=== PATIENT | female | born 1970 | race African-American/Black ===

== ENCOUNTER 2019-11-06 06:12 | Day surgery (SDC) | payer BC, OTHER ==
[2019-11-04 17:39] VITALS: BMI 33.2
[2019-11-06] MEDS ORDERED: PROPOFOL 20 ML ONE ×2 (07:46)
[2019-11-06] MEDS ORDERED: MIDAZOLAM HCL 2 MG/2 ML SINGLE DOSE VIAL ONE (07:46)
[2019-11-06] MEDS ORDERED: ROCURONIUM BROMIDE 100 MG/10 ML VIAL ONE (07:46)
[2019-11-06] MEDS ORDERED: SUCCINYLCHOLINE CHLORIDE 200 MG/10 ML SYRINGE ONE (07:46)
[2019-11-06] MEDS ORDERED: LIDOCAINE HCL 2% JELLY (5 ML/TUBE) ONE (07:47)
[2019-11-06] MEDS ORDERED: LIDOCAINE HCL/PF 2% SDV 5ML VIAL ONE (07:47)
[2019-11-06] MEDS ORDERED: DEXAMETHASONE SOD PHOSPHATE 4 MG/1 ML VIAL ONE (07:47)
[2019-11-06] MEDS ORDERED: KETOROLAC TROMETHAMINE 30 MG/1 ML VIAL ONE (07:47)
[2019-11-06 08:40] LABS: HEMATOCRIT 36.5 % (32.4-45.2); HEMOGLOBIN 11.9 GM/dL (10.7-15.3); MCH 27.9 pg (25.7-33.7); MCHC 32.8 g/dl (32.0-36.0); MEAN CELL VOLUME 85.2 fl (80-96); MEAN PLT VOLUME 8.9 fl (7.5-11.1); PLATELET COUNT 256 K/MM3 (134-434); RBC 4.28 M/mm3 (3.60-5.2); WHITE BLOOD COUNT 6.1 K/mm3 (4.0-10.0)
[2019-11-06] MEDS ORDERED: ePHEDrine SULFATE 50 MG/1 ML AMPULE ONE (09:03)
[2019-11-06] MEDS ORDERED: ceFAZolin 2 GRAM PREMIX BAG IVPB ONE (09:07)
[2019-11-06] MEDS ORDERED: ceFAZolin SODIUM 1 GM VIAL ONE (09:08)
[2019-11-06] MEDS ORDERED: SODIUM CHLORIDE 0.9% P/F 10 ML VIAL IJ ONE (09:08)
--- NOTE | 2019-11-06 10:57 | OP ---
Operative Note - Note: Operative Date: 11/06/19 Pre-Operative Diagnosis: Postmenopausal bleeding, postcoital bleeding, fibroid uterus. Operation: Hysteroscopy, myomectomy, D&C Findings: Small, irregularly shaped endometrial cavity with submucous myoma(s). Post-Operative Diagnosis: Same as Pre-op Surgeon: Marv Goldsmith Anesthesiologist/CARE PROVIDER: Melany Nino Anesthesia: General Specimens Removed: Submucous myoma, endometrial curettings. Estimated Blood Loss (mls): 5 Blood Volume Replaced (mls): 0 Fluid Volume Replaced (mls): 600 Operative Report Dictated: Yes
[2019-11-06] MEDS ORDERED: oxyCODONE HCL 5 MG TABLET PO PRN (11:26)
[2019-11-06] MEDS ORDERED: ONDANSETRON 4 MG/2 ML VIAL IVPUSH PRN (11:26)
[2019-11-06] MEDS ORDERED: LACTATED RINGERS SOLUTION 1,000 ML IV SCH (11:30)
[2019-11-06] MEDS ORDERED: oxyCODONE HCL 5 MG TABLET ONE (14:33)
[2019-11-06 14:58] VITALS: BP 127/81; PULSE 81; TEMP 98.1
--- NOTE | 2019-11-10 17:05 | PATH ---
Surgical Pathology Report Patient Name: RADHA GIBSON [facility]. Rec. #: [id number] /Age/Gender: 1970 (Age: 49) / F Account: [id number] Location: [facility] SURGICAL Taken: 11/06/2019 Received: 11/06/2019 Reported: 11/10/2019 Physicians: Marv Goldsmith M.D. Specimen(s) Received A: ENDOCERVICAL CURETTINGS B: MYOMA Clinical History Postmenopausal bleeding, fibroid uterus, postcoital bleeding Final Diagnosis A. ENDOMETRIAL CURETTINGS: ENDOMETRIAL POLYP. SEPARATE PROLIFERATIVE ENDOMETRIUM. ENDOCERVICAL TISSUE WITH SQUAMOUS METAPLASIA. B. MYOMA, RESECTION: ENDOMETRIAL POLYP. SEPARATE SMOOTH MUSCLE BUNDLES, CONSISTENT WITH SUBMUCOSAL LEIOMYOMA. SEPARATE PROLIFERATIVE ENDOMETRIUM. Electronically Signed Willy Grullon M.D. Gross Description A. Received in formalin labeled "endometrial curettings," is a 1.7 x 1.5 x 0.3 cm aggregate of swanson soft tissue fragments. The formalin is filtered and the specimen is entirely submitted in one cassette. B. Received in formalin labeled "myoma," is a 1 g, 2.5 x 1.7 x 0.3 cm aggregate of swanson soft tissue fragments admixed with blood clot. The formalin is filtered and the specimen is entirely submitted in one cassette. /11/09/2019 [facility]11/09/2019
--- NOTE | 2019-11-26 11:58 | OP ---
DATE OF OPERATION: 11/06/2019 PREOPERATIVE DIAGNOSIS: Postmenopausal bleeding, postcoital bleeding, fibroid uterus, endometriosis. POSTOPERATIVE DIAGNOSIS: Postmenopausal bleeding, postcoital bleeding, fibroid uterus, endometriosis. PROCEDURE: Hysteroscopic myomectomy and dilation and curettage. SURGEON: Marv Goldsmith MD ANESTHESIOLOGIST: Melany Nino MD ANESTHESIA: General. COMPLICATIONS: None. ESTIMATED BLOOD LOSS: 5 mL. INTRAVENOUS FLUIDS: 600 mL. PATHOLOGY: Submucous myoma fragments and endometrial curettings. FINDINGS: Examination under anesthesia revealed an enlarged, bulky uterus. The examination was limited by patient's body habitus. Hysteroscopy revealed a small, irregularly shaped endometrial cavity with submucous myomas. PROCEDURE DICTATION: The patient was met preoperatively. Risks, benefits, and alternatives of surgery were discussed in detail. All questions were answered. The consent form was reviewed and discussed. The patient verbalized her understanding and requested to proceed with surgery. The patient was brought to the OR with the IV running. She was placed on the surgical table in the supine position. General anesthesia was achieved without difficulty. The patient was then placed in a dorsal lithotomy position using adjustable Newton stirrups. She was examined under anesthesia, with the findings as described above. The timeout was then conducted as per standard protocol. The patient was prepped and draped in the usual sterile fashion. A weighted speculum was introduced inside the vagina with good visualization of the cervix. The cervix was grasped with a single-tooth tenaculum. The cervical os was gently dilated to accommodate a size 23 Lion dilator. A hysteroscope was introduced inside the uterine cavity. The uterine cavity appeared to be small, and there were submucous myomas noted. A resectoscope was then used to remove the submucous myomas. All visualized components of submucous myomas were removed. The uterine cavity appeared to be within normal limits. Good hemostasis was noted. The hysteroscope was then removed from the patient. Sponge, lap, needle counts were correct. Once again, good hemostasis was confirmed. The patient was then returned to supine position. She was transferred to recovery room in stable condition and awake. Stacy [id number]
== END 2019-11-06 16:40 | disposition home or self-care (01) ==
LOC: JASU-SURG 06:12
PROVIDERS: ATTEND Obstetrics & Gynecology
PROC: 0UJD8ZZ Inspection of Uterus and Cervix, Via Natural or Artificial Opening Endoscopic (ICD-10-PCS; 2019-11-06)
PROC: 0UB98ZZ Excision of Uterus, Via Natural or Artificial Opening Endoscopic (ICD-10-PCS; principal; 2019-11-06 08:00)
PROC: 0UDB7ZX Extraction of Endometrium, Via Natural or Artificial Opening, Diagnostic (ICD-10-PCS; 2019-11-06 08:00)
DX: D25.9 Leiomyoma of uterus, unspecified (principal); N95.0 Postmenopausal bleeding; N80.0 Endometriosis of uterus; N93.0 Postcoital and contact bleeding
CPT/HCPCS: 36415; 84703; 85027; 86850; 86900; 86901; 88305-TC; 94760

== ENCOUNTER 2020-12-19 05:02 | Day surgery (SDC) | payer BC, OTHER ==
[2020-09-30 10:46] VITALS: BMI 35.5
[~2020-12-19 05:02] MED LIST: LACTATED RINGERS SOLUTION 1,000 ML IV SCH; ONDANSETRON 4 MG/2 ML VIAL IVPUSH PRN; oxyCODONE HCL 5 MG TABLET PO PRN
[2020-12-19] MEDS ORDERED: MIDAZOLAM HCL 2 MG/2 ML SINGLE DOSE VIAL ONE (13:38)
[2020-12-19] MEDS ORDERED: PROPOFOL 20 ML ONE (13:56)
[2020-12-19] MEDS ORDERED: ceFAZolin SODIUM 1 GM VIAL IVPB ONE (14:06)
[2020-12-19] MEDS ORDERED: oxyCODONE HCL 5 MG TABLET ONE (16:25)
[2020-12-19 18:20] VITALS: BP 131/79; PULSE 78; TEMP 97.8
== END 2020-12-19 18:21 | disposition home or self-care (01) ==
LOC: JASU-SURG 05:02
PROVIDERS: ATTEND Obstetrics & Gynecology
PROC: 0UB98ZX Excision of Uterus, Via Natural or Artificial Opening Endoscopic, Diagnostic (ICD-10-PCS; principal; 2020-12-19 11:30)
PROC: 0UDB7ZX Extraction of Endometrium, Via Natural or Artificial Opening, Diagnostic (ICD-10-PCS; 2020-12-19 11:30)
DX: N95.0 Postmenopausal bleeding (principal); N84.0 Polyp of corpus uteri; D25.9 Leiomyoma of uterus, unspecified
CPT/HCPCS: 88305-TC; 94760